=== PATIENT | male | born 1995 | race Hispanic/Latino ===

== ENCOUNTER 2019-12-12 11:16 | Outpatient (CLI) | payer SELFPAY ==
--- NOTE | 2019-12-13 07:41 | RAD ---
RIGHT THUMB 3 VIEWS: DATE: 12/12/2019. FINDINGS: No fracture or joint abnormality was seen. The bones are currently unremarkable in appearance. IMPRESSION: No significant finding. POS: HOME
== END 2019-12-12 11:17 | disposition home or self-care (01) ==
LOC: BURRAD 11:16
DX: S60.931A Unspecified superficial injury of right thumb, initial encounter (principal)